=== PATIENT | male | born 1990 | race Caucasian/White ===

== ENCOUNTER 2017-02-14 14:21 | Emergency (ER) | payer OTHER ==
[~2017-02-14] VITALS: Ht 190.5 cm; Wt 86.2 kg
[~2017-02-14 14:21] MED LIST: CLINDAMYCIN HC300 MG PO; FLEXERIL10 MG PO; MOTRIN800 MG PO; NORCO 325 MG-51 TAB PO
[2017-02-14] MEDS ORDERED: CLINDAMYCIN HC300 MG PO (14:36)
[2017-02-14] MEDS ORDERED: NAPROSYN500 MG PO (14:36)
== END 2017-02-14 14:34 | disposition home or self-care (01) ==
LOC: ED 14:21
DX: K02.9 Dental caries, unspecified (principal); F17.200 Nicotine dependence, unspecified, uncomplicated; Z88.0 Allergy status to penicillin

== ENCOUNTER 2017-02-17 15:18 | Emergency (ER) | payer OTHER ==
[~2017-02-17] VITALS: Ht 190.5 cm; Wt 86.2 kg
[~2017-02-17 15:18] MED LIST changes: +NAPROSYN500 MG PO
[2017-02-17] MEDS ORDERED: TYLENOL WITH CO1 TA1 PO (16:45)
== END 2017-02-17 16:02 | disposition home or self-care (01) ==
LOC: ED 15:18
DX: K08.89 Other specified disorders of teeth and supporting structures (principal); Z88.0 Allergy status to penicillin; Z88.1 Allergy status to other antibiotic agents